=== PATIENT | female | born 1955 ===

== ENCOUNTER 2018-06-06 11:19 | Outpatient (CLI) | payer OTHER | END 2018-06-06 11:21 | disposition home or self-care (01) | LOC: SONOGRAMA 11:19 | DX: E04.2 Nontoxic multinodular goiter (principal) ==

== ENCOUNTER 2021-12-19 10:11 | Outpatient (CLI) | payer OTHER | END 2021-12-19 10:17 | disposition home or self-care (01) | LOC: SONOGRAMA 10:11 | PROVIDERS: ATTEND Pathology Anatomic Pathology & Clinical Pathology | DX: E04.2 Nontoxic multinodular goiter (principal) ==

== ENCOUNTER 2022-03-24 07:45 | Inpatient (IN) | payer OTHER ==
[~2022-03-24] VITALS: Ht 152.4 cm; Wt 81.6 kg
[2022-03-24] MEDS ORDERED: ZESTORETIC 10-1 EACH PO (09:42)
[2022-03-24] MEDS ORDERED: SYNTHROID75 MCG PO (09:42)
[2022-03-24] MEDS ORDERED: ATORVASTATIN CA10 MG PO (09:43)
[2022-03-24] MEDS ORDERED: NORVASC5 MG PO (09:43)
[2022-03-24] MEDS ORDERED: MAXIMUM RED KR1 EACH PO (09:44)
[2022-03-27] MEDS ORDERED: LATANOPROST2.5 ML (10:45)
[2022-03-27] MEDS ORDERED: NABUMETONE750 MG (10:45)
== END 2022-04-03 13:15 | DRG 470 ==
LOC: SURG 03-27 07:45 → SURH 03-27 09:53 → O/R 03-27 09:53 → SURH 03-27 13:37 → SURG 03-27 18:15 → SURH 03-29 17:15
PROVIDERS: ADMIT Orthopaedic Surgery Sports Medicine; ATTEND Orthopaedic Surgery Sports Medicine
PROC: 0SR90JA Replacement of Right Hip Joint with Synthetic Substitute, Uncemented, Open Approach (ICD-10-PCS; principal; 2022-03-27 18:15)
PROC: B54DZZZ Ultrasonography of Bilateral Lower Extremity Veins (ICD-10-PCS; 2022-03-30)
PROC: 30233N1 Transfusion of Nonautologous Red Blood Cells into Peripheral Vein, Percutaneous Approach (ICD-10-PCS; 2022-04-01)
DX: M16.11 Unilateral primary osteoarthritis, right hip (principal); D64.89 Other specified anemias; E03.9 Hypothyroidism, unspecified; I10 Essential (primary) hypertension

== ENCOUNTER 2023-10-29 07:00 | Inpatient (IN) | payer OTHER ==
[~2023-10-29 07:00] MED LIST: ATORVASTATIN CA10 MG PO; LATANOPROST2.5 ML; MAXIMUM RED KR1 EACH PO; NABUMETONE750 MG; NORVASC5 MG PO; SYNTHROID75 MCG PO; ZESTORETIC 10-1 EACH PO
[2023-10-29 09:10] LABS: HEMATOCRIT 37.5 % (36.0-45.00); HEMOGLOBIN 12.3 g/dL (12.0-15.00); MEAN CELL VOLUME 83.8 fL (80.00-100.00); MEAN CORPUSCULAR HEMOGLOBIN 27.6 pg (27.00-32.0); MEAN CORPUSCULAR HGB CONC 32.9 g/dl (32.0-36.0); PLATELET COUNT 248 K/uL (150-450); RED BLOOD COUNT 4.47 M/uL (4.00-6.00); RED CELL DISTRIBUTION WIDTH 14.3 % (11.5-14.5)
[2023-10-29 09:57] LABS: INR 0.94; PARTIAL THROMBOPLASTIN TIME 28.6 SECONDS (22.0-34.0); PROTHROMBIN TIME 9.9 SECONDS (9.0-11.5)
[2023-10-29 09:58] LABS: ALBUMIN 3.6 gm/dL (3.4-5.0); BILIRUBIN TOTAL 0.33 mg/dL (0.3-1.2); CALCIUM 9.3 mg/dL (8.5-10.1); CREATININE SERUM 0.93 mg/dL (0.55-1.02); GFR 60.32; GLOBULINA 3.2 G/DL (2.4-3.5); POTASSIUM 3.74 mEq/L (3.5-5.1); TOTAL PROTEIN 6.8 gm/dL (6.4-8.2)
[2023-10-29 12:47] LABS: URINE APPEARANCE Cloudy; URINE BILIRRUBIN Negative (NEGATIVE); URINE COLOR Yellow; URINE GLUCOSE Negative (NEGATIVE); URINE LEUKOCYTE Moderate; URINE NITRATE Negative; URINE PROTEIN Negative (NEGATIVE); URINE UROBILINOGEN 0.2 E.U./dl
[2023-10-29 12:52] LABS: URINE BACTERIA 2446.8 uL (0.0-1933); URINE EPITHELIAL CELLS 90.1 uL (0.0-38.8); URINE RBC 3.4 uL (0.0-20.8); URINE WBC 106.5 uL (0.0-23.2)
[2023-10-29 13:05] LABS: URINE BLOOD TRACES; URINE CRYSTALS FEW /HPF
[2023-11-05] MEDS ORDERED: TRANEXAMIC ACID 100MG/1ML (1000MG) AMPUL IV ONE ×3 (09:00→12:45)
[2023-11-05] MEDS ORDERED: CEFAZOLIN SODIUM 1,000 MG VIAL ONE ×2 (09:00→17:54)
[2023-11-05] MEDS ORDERED: BUPIVACAINE HCL/PF 0.5% 30ML ML ONE (11:20)
[2023-11-05] MEDS ORDERED: METHYLPREDNISOLONE ACETATE 80 MG/ML VIAL ONE (11:20)
[2023-11-05] MEDS ORDERED: KETOROLAC TROMETHAMINE 30 MG VIAL ONE ×2 (11:20→15:28)
[2023-11-05] MEDS ORDERED: VANCOMYCIN HCL 1,000 MG VIAL ONE (11:47)
[2023-11-05] MEDS ORDERED: MORPHINE SULFATE 4 MG/ML CARTRIDGE IV ONE (12:45)
[2023-11-05] MEDS ORDERED: CEFAZOLIN SODIUM 1,000 MG VIAL IV ONE (12:45)
[2023-11-05] MEDS ORDERED: VANCOMYCIN HCL 1,000 MG VIAL IR ONE (12:45)
[2023-11-05] MEDS ORDERED: KETOROLAC TROMETHAMINE 60 MG VIAL IM ONE (12:45)
[2023-11-05] MEDS ORDERED: METHYLPREDNISOLONE ACETATE 80 MG/ML VIAL IJ ONE (13:00)
[2023-11-05] MEDS ORDERED: THROMBIN,HU/FIBRINOGEN/CALCIUM 10 ML SYRINGE TOP ONE ×2 (14:08→14:30)
[2023-11-05] MEDS ORDERED: POVIDONE-IODINE 3 EA MED..SWAB TOP ONE (14:37)
[2023-11-05] MEDS ORDERED: POVIDONE-IODINE 0.75 OZ PACKET TOP ONE (14:45)
[2023-11-05] MEDS ORDERED: KETOROLAC TROMETHAMINE 30 MG VIAL IM SCH (15:45)
[2023-11-05] MEDS ORDERED: KETOROLAC TROMETHAMINE 30 MG VIAL IV SCH (15:45)
[2023-11-05] MEDS ORDERED: SODIUM CHLORIDE 0.45 % 1,000 ML IV SCH (16:00)
[2023-11-05] MEDS ORDERED: SULFAMETHOXAZOLE/TRIMETHOPRIM DS 1 TAB PO SCH (16:00)
[2023-11-05] MEDS ORDERED: ONDANSETRON HCL 2 MG/ML VIAL IV PRN (16:00)
[2023-11-05] MEDS ORDERED: MORPHINE SULFATE 4 MG/ML CARTRIDGE IV PRN (16:00)
[2023-11-05] MEDS ORDERED: MORPHINE SULFATE 2 MG/ML CARTRIDGE IV ONE (16:00)
[2023-11-05] MEDS ORDERED: CEFAZOLIN SODIUM 1,000 MG VIAL IV SCH (18:00)
[2023-11-05 18:19] LABS: HEMATOCRIT 34.9 % (36.0-45.00); HEMOGLOBIN 11.5 g/dL (12.0-15.00); RED BLOOD COUNT 4.16 M/uL (4.00-6.00)
[2023-11-06] MEDS ORDERED: LEVOTHYROXINE SODIUM 75 MCG TABLET PO SCH (06:00)
[2023-11-06 06:25] LABS: HEMATOCRIT 31.5 % (36.0-45.00); HEMOGLOBIN 10.4 g/dL (12.0-15.00); MEAN CELL VOLUME 84.9 fL (80.00-100.00); MEAN CORPUSCULAR HEMOGLOBIN 28.2 pg (27.00-32.0); MEAN CORPUSCULAR HGB CONC 33.1 g/dl (32.0-36.0); PLATELET COUNT 199 K/uL (150-450); RED BLOOD COUNT 3.71 M/uL (4.00-6.00); RED CELL DISTRIBUTION WIDTH 13.8 % (11.5-14.5)
[2023-11-06] MEDS ORDERED: OxyCODONE HCL/APAP UD (PERCOCET) PO PRN (08:00)
[2023-11-06] MEDS ORDERED: OxyCODONE HCL ER 10MG TAB (OxyCONTIN) PO SCH (09:00)
[2023-11-06] MEDS ORDERED: IRON FUM,PS/FOLIC/BCOMP,C NO.9 1 CAP CAPSULE PO SCH (09:00)
[2023-11-06] MEDS ORDERED: RIVAROXABAN 10 MG TAB PO SCH (09:00)
[2023-11-06] MEDS ORDERED: ATORVASTATIN CALCIUM 10 MG TABLET PO SCH (09:00)
[2023-11-06] MEDS ORDERED: AMLODIPINE BESYLATE 5 MG TABLET PO SCH (09:00)
[2023-11-06] MEDS ORDERED: SENNA/DOCUSATE SODIUM 1 TAB TABLET PO SCH (09:00)
[2023-11-06] MEDS ORDERED: BACITRACIN 28.35 GM OINT.TUBE TOP SCH (09:00)
[2023-11-07 06:16] LABS: HEMATOCRIT 26.4 % (36.0-45.00); MEAN CELL VOLUME 84.6 fL (80.00-100.00); MEAN CORPUSCULAR HEMOGLOBIN 28.8 pg (27.00-32.0); PLATELET COUNT 178 K/uL (150-450); RED BLOOD COUNT 3.12 M/uL (4.00-6.00); RED CELL DISTRIBUTION WIDTH 13.8 % (11.5-14.5)
[2023-11-07] MEDS ORDERED: FUROsemide 20 MG/2 ML VIAL IV SCH (07:30)
[2023-11-07 13:08] LABS: URINE APPEARANCE Cloudy; URINE BILIRRUBIN Negative (NEGATIVE); URINE BLOOD Small; URINE COLOR Yellow; URINE GLUCOSE Negative (NEGATIVE); URINE LEUKOCYTE Moderate; URINE NITRATE Negative; URINE PROTEIN 30 (NEGATIVE); URINE UROBILINOGEN 0.2 E.U./dl
[2023-11-07 13:09] LABS: URINE BACTERIA 95.7 uL (0.0-1933); URINE EPITHELIAL CELLS 69.7 uL (0.0-38.8); URINE RBC 19.1 uL (0.0-20.8)
[2023-11-07 21:07] LABS: HEMATOCRIT 27.8 % (36.0-45.00); HEMOGLOBIN 9.5 g/dL (12.0-15.00); MEAN CELL VOLUME 84.4 fL (80.00-100.00); MEAN CORPUSCULAR HEMOGLOBIN 28.8 pg (27.00-32.0); MEAN CORPUSCULAR HGB CONC 34.1 g/dl (32.0-36.0); PLATELET COUNT 161 K/uL (150-450); RED CELL DISTRIBUTION WIDTH 13.8 % (11.5-14.5)
[2023-11-08] MEDS ORDERED: XARELTO10 MG PO (07:53)
[2023-11-08] MEDS ORDERED: INTEGRA PLUS C1 EACH PO (07:53)
[2023-11-08] MEDS ORDERED: Septra Ds Tablet PO (07:53)
[2023-11-08] MEDS ORDERED: TRAM1TAB98 PO (07:53)
[2023-11-08 20:13] LABS: HEMATOCRIT 33.1 % (36.0-45.00); HEMOGLOBIN 10.9 g/dL (12.0-15.00); MEAN CELL VOLUME 85.1 fL (80.00-100.00); MEAN CORPUSCULAR HEMOGLOBIN 28.1 pg (27.00-32.0); PLATELET COUNT 189 K/uL (150-450); RED BLOOD COUNT 3.89 M/uL (4.00-6.00)
[2023-11-09] MEDS ORDERED: TRAMADOL HCL 50 MG TABLET PO PRN (16:15)
== END 2023-11-09 22:32 | disposition home or self-care (01) | DRG 470 ==
LOC: SURG-SUITE 11-05 07:00 → O/R 11-05 08:10 → SURH 11-05 08:10 → SURG-SUITE 11-05 11:30 → SURH 11-05 15:56
PROVIDERS: ADMIT Orthopaedic Surgery Sports Medicine; ATTEND Orthopaedic Surgery Sports Medicine
PROC: 0SRB0JZ Replacement of Left Hip Joint with Synthetic Substitute, Open Approach (ICD-10-PCS; principal; 2023-11-05 11:30)
PROC: 30233N1 Transfusion of Nonautologous Red Blood Cells into Peripheral Vein, Percutaneous Approach (ICD-10-PCS; 2023-11-07)
DX: M16.12 Unilateral primary osteoarthritis, left hip (principal); I10 Essential (primary) hypertension; E03.9 Hypothyroidism, unspecified; D64.9 Anemia, unspecified; Z20.822 Contact with and (suspected) exposure to COVID-19